=== PATIENT | female | born 1990 | race American Indian/Alaskan Native ===

== ENCOUNTER 2020-03-14 14:42 | Emergency (ER) | payer BC ==
[2020-03-14] MEDS ORDERED: Ondansetron 4 MG/2 ML SDV IVPUSH ONE (14:53)
[2020-03-14 14:56] VITALS: BP 108/76; PULSE 76
--- NOTE | 2020-03-14 15:07 | EDM.PDOC ---
ED HPI GENERAL MEDICAL PROBLEM - General Chief Complaint: Gastrointestinal Problem Stated Complaint: POSITIVE FOR COVID, 7 WEEKS Time Seen by Provider: 03/14/20 15:25 Source of Information: Reports: Patient, RN, RN Notes Reviewed History Limitations: Reports: No Limitations - History of Present Illness INITIAL COMMENTS - FREE TEXT/NARRATIVE: Patient presents to the ED via personal vehicle with complaints of intractable vomiting. She is 29 y/o 1 Para 0 at about 7 weeks gestation - per home test and personal cycle. She has not received obstetric care, yet, but has an appointment with the family practice provider at [facility]. She does attest to being COVID positive, as she was tested earlier this week. She states the nausea and vomiting began on Sunday of this past week 03/09/20. She reports multiple bouts of emesis every day, and has been unable to keep food and drink down. She denies diarrhea, bloody emesis, dysuria, hematuria, abdominal pain, fever, or shaking chills. She has not taken any medications for this problem. 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: Musculoskeletal History: Reports: None Neurological History: Reports: None Psychiatric History: Reports: None Endocrine/Metabolic History: Reports: None Hematologic History: Reports: None Immunologic History: Reports: None Oncologic (Cancer) History: Reports: None Dermatologic History: Reports: None - Infectious Disease History Infectious Disease History: Reports: None - Past Surgical History Head Surgeries/Procedures: Reports: None GI Surgical History: Reports: Cholecystectomy Social & Family History - Family History Family Medical History: Noncontributory - Tobacco Use Smoking Status *Q: Never Smoker Second Hand Smoke Exposure: No - Caffeine Use Caffeine Use: Reports: None - Recreational Drug Use Recreational Drug Use: No - Living Situation & Occupation Living situation: Reports: with Significant Other Occupation: Employed ED ROS GENERAL - Review of Systems Review Of Systems: Comprehensive ROS is negative, except as noted in HPI. ED EXAM, GI/ABD - Physical Exam Exam: See Below Exam Limited By: No Limitations General Appearance: Alert, WD/WN, No Apparent Distress Throat/Mouth: Normal Inspection, Normal Voice, No Airway Compromise Neck: Normal Inspection, Supple, Non-Tender Respiratory/Chest: No Respiratory Distress, Lungs Clear, Normal Breath Sounds, No Accessory Muscle Use, Chest Non-Tender Cardiovascular: Normal Peripheral Pulses, Regular Rate, Rhythm, No Edema, No Gallop, No Murmur, No Rub GI/Abdominal Exam: Normal Bowel Sounds, Soft, Non-Tender, No Distention, No Mass (Female) Exam: Deferred Rectal (Female) Exam: Deferred Extremities: Normal Capillary Refill Neurological: Alert, Oriented, CN II-XII Intact, Normal Cognition, No Motor/Sensory Deficits Skin Exam: Warm, Dry, Intact, Normal Color. No: Diaphoretic, Ecchymosis, Erythema, Petechiae, Rash Course - Vital Signs Last Recorded V/S: Last Vital Signs Temp 98.0 F 03/14/20 14:46 Pulse 76 03/14/20 14:46 Resp 16 03/14/20 14:46 BP 108/76 03/14/20 14:46 Pulse Ox 100 03/14/20 14:46 - Orders/Labs/Meds Orders: Active Orders 24 hr Category Date Time Status Sodium Chloride 0.9% [Normal Saline] 1,000 ml Med 03/14/20 16:04 Active IV .BOLUS Medication Orders Sodium Chloride (Normal Saline) 1,000 mls @ 999 mls/hr IV .BOLUS ONE Stop: 03/14/20 17:04 Last Admin: 03/14/20 16:05 Dose: 999 mls/hr Documented by: RHONDA Meds: Medications Generic Name Dose Route Start Last Admin Trade Name Freq PRN Reason Stop Dose Admin Sodium Chloride 1,000 mls @ 999 mls/hr 03/14/20 16:04 03/14/20 16:05 Normal Saline IV 03/14/20 17:04 999 mls/hr .BOLUS ONE Administration Discontinued Medications Generic Name Dose Route Start Last Admin Trade Name Freq PRN Reason Stop Dose Admin Ondansetron HCl 4 mg 03/14/20 14:53 03/14/20 15:02 Zofran IVPUSH 03/14/20 14:54 4 mg ONETIME ONE Administration - Re-Assessments/Exams Free Text/Narrative Re-Assessment/Exam: 03/14/20 15:30 Patient receiving IVF bolus. Zofran 4mg working for nausea. 03/14/20 16:29 Patient stable. VSS. Will discharge home. Departure - Departure Time of Disposition: 16:49 Disposition: Home, Self-Care 01 Clinical Impression: Vomiting during , Gastroenteritis due to COVID-19 virus - Discharge Information *PRESCRIPTION DRUG MONITORING PROGRAM REVIEWED*: Not Applicable *COPY OF PRESCRIPTION DRUG MONITORING REPORT IN PATIENT NORMAN: Not Applicable Instructions: and COVID-19, Morning Sickness, [id number] Forms: ED Department Discharge Additional Instructions: Drink plenty of fluids and eat smaller/snack-like meals. Follow-up with primary care provider, as previously scheduled. Sepsis Event Note (ED) - Evaluation Sepsis Screening Result: No Definite Risk - Focused Exam Vital Signs: Vital Signs Temp Pulse Resp BP Pulse Ox 03/14/20 14:46 98.0 F 76 16 108/76 100 - My Orders Last 24 Hours: My Active Orders 03/14/20 16:04 Sodium Chloride 0.9% [Normal Saline] 1,000 ml IV .BOLUS - Assessment/Plan Last 24 Hours: My Active Orders 03/14/20 16:04 Sodium Chloride 0.9% [Normal Saline] 1,000 ml IV .BOLUS
[2020-03-14] MEDS ORDERED: Sodium Chloride 0.9% 1,000 ML IV ONE (16:04)
== END 2020-03-14 17:00 | disposition home or self-care (01) ==
LOC: DL.ED 14:42
DX: O99.611 Diseases of the digestive system complicating pregnancy, first trimester (principal); K52.9 Noninfective gastroenteritis and colitis, unspecified; O98.511 Other viral diseases complicating pregnancy, first trimester; U07.1 COVID-19; Z3A.01 Less than 8 weeks gestation of pregnancy
CPT/HCPCS: 96361; 96374; 99283; J2405; J7030

== ENCOUNTER 2020-08-15 15:37 | Emergency (ER) | payer BC ==
[2020-08-15 15:49] VITALS: BP 112/65; PULSE 89
[2020-08-15] MEDS ORDERED: Ketorolac 30 MG/ML SDV IM ONE (16:23)
--- NOTE | 2020-08-15 17:04 | EDM.PDOC ---
Scribed by Prisca Merritt 08/15/20 2614 for Ade Judge NP ED HPI GENERAL MEDICAL PROBLEM - General Chief Complaint: Lower Extremity Injury/Pain Stated Complaint: SI NERVE PAIN Time Seen by Provider: 08/15/20 16:05 Source of Information: Reports: Patient, RN, RN Notes Reviewed History Limitations: Reports: No Limitations - History of Present Illness INITIAL COMMENTS - FREE TEXT/NARRATIVE: Patient is a 29-year-old female who presents to ER with complaint of right sciatic pain. Patient is a 29 weeks . States she went to the chiropractor on Sunday and things have been worsening. Admits to numbness and tingling down the right leg, and pain down right leg to the calf. Patient states she has been using Tylenol, ice, heat and states it feels good but does not improve pain. Onset: Gradual Duration: Getting Worse Location: Reports: Generalized Quality: Reports: Ache Severity: Moderate Improves with: Reports: None Worsens with: Reports: None Associated Symptoms: Reports: No Other Symptoms Right Leg Pain Score (Numeric/FACES): 10 - Related Data Allergies Allergy/AdvReac Type Severity Reaction Status Date / Time No Known Allergies Allergy Verified 08/15/20 15:48 Home Meds: Home Meds Ibuprofen 200 mg PO ASDIRECTED PRN 04/03/15 [History] Acetaminophen [Tylenol Extra Strength] 500 mg PO ASDIRECTED PRN 08/15/20 [History] Vit37/Iron/Folic Acid [Prenata] 1 tab PO DAILY 08/15/20 [History] Past Medical History - Past Health History Medical/Surgical History: Denies Medical/Surgical History HEENT History: Reports: None Cardiovascular History: Reports: None Respiratory History: Reports: None Gastrointestinal History: Reports: Cholelithiasis Genitourinary History: Reports: None 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: Musculoskeletal History: Reports: None Neurological History: Reports: None Psychiatric History: Reports: None Endocrine/Metabolic History: Reports: None Hematologic History: Reports: None Immunologic History: Reports: None Oncologic (Cancer) History: Reports: None Dermatologic History: Reports: None - Infectious Disease History Infectious Disease History: Reports: None - Past Surgical History Head Surgeries/Procedures: Reports: None GI Surgical History: Reports: Cholecystectomy Social & Family History - Family History Family Medical History: No Pertinent Family History - Tobacco Use Tobacco Use Status *Q: Never Tobacco User Second Hand Smoke Exposure: No - Caffeine Use Caffeine Use: Reports: None - Recreational Drug Use Recreational Drug Use: No - Living Situation & Occupation Living situation: Reports: with Significant Other Occupation: Employed Review of Systems - Review of Systems Review Of Systems: Comprehensive ROS is negative, except as noted in HPI. ED EXAM, GENERAL - Physical Exam Exam: See Below Exam Limited By: No Limitations General Appearance: Moderate Distress Eye Exam: Bilateral Eye: EOMI, Normal Inspection, PERRL Ears: Normal External Exam, Normal Canal, Hearing Grossly Normal, Normal TMs Nose: Normal Inspection, Normal Mucosa, No Blood Throat/Mouth: Normal Inspection, Normal Lips, Normal Teeth, Normal Gums, Normal Oropharynx, Normal Voice, No Airway Compromise Head: Atraumatic, Normocephalic Neck: Normal Inspection, Supple, Non-Tender, Full Range of Motion Respiratory/Chest: No Respiratory Distress, Lungs Clear, Normal Breath Sounds, No Accessory Muscle Use, Chest Non-Tender Cardiovascular: Normal Peripheral Pulses, Regular Rate, Rhythm, No Edema, No Gallop, No JVD, No Murmur, No Rub GI/Abdominal: Other (29 weeks ) (Female) Exam: Deferred Rectal (Female) Exam: Deferred Back Exam: Normal Inspection, Full Range of Motion, NT Extremities: Normal Inspection, Normal Range of Motion, Non-Tender, Normal Capillary Refill, No Pedal Edema Neurological: Alert, Oriented, CN II-XII Intact, Normal Cognition, Normal Gait, Normal Reflexes, No Motor/Sensory Deficits Psychiatric: Normal Affect, Normal Mood Skin Exam: Warm, Dry, Intact, Normal Color, No Rash Lymphatic: No Adenopathy Course - Vital Signs Last Recorded V/S: Last Vital Signs Temp 97.9 F 08/15/20 15:47 Pulse 89 08/15/20 15:47 Resp 18 08/15/20 15:47 BP 112/65 08/15/20 15:47 Pulse Ox 100 08/15/20 15:47 - Orders/Labs/Meds Meds: Medications Discontinued Medications Generic Name Dose Route Start Last Admin Trade Name Freq PRN Reason Stop Dose Admin Ketorolac Tromethamine 30 mg 08/15/20 16:23 08/15/20 16:33 Ketorolac 30 Mg/Ml Sdv IM 08/15/20 16:24 30 mg ONETIME ONE Administration Departure - Departure Time of Disposition: 16:42 Disposition: Home, Self-Care 01 Condition: Fair Clinical Impression: Right sided sciatica - Discharge Information *PRESCRIPTION DRUG MONITORING PROGRAM REVIEWED*: No *COPY OF PRESCRIPTION DRUG MONITORING REPORT IN PATIENT NORMAN: No Instructions: Sciatica, Cgnd-[id number] Forms: ED Department Discharge Additional Instructions: Continue using Tylenol, Lidocaine patch, ice and heat Rest Follow up with Physical Therapy tomorrow Sepsis Event Note (ED) - Evaluation Sepsis Screening Result: No Definite Risk - Focused Exam Vital Signs: Vital Signs Temp Pulse Resp BP Pulse Ox 08/15/20 15:47 97.9 F 89 18 112/65 100 I have read and agree with the documentation that has been completed regarding this visit. By signing this record, I attest that the documentation was completed in my physical presence and is an accurate record of the encounter.
== END 2020-08-15 16:46 | disposition home or self-care (01) ==
LOC: DL.ED 15:37
DX: O99.891 Other specified diseases and conditions complicating pregnancy (principal); M54.31 Sciatica, right side; Z3A.29 29 weeks gestation of pregnancy
CPT/HCPCS: 96372; 99283; J1885

== ENCOUNTER 2020-10-28 02:33 | Inpatient (IN) | payer BC, OTHER ==
[2020-10-28] MEDS: Lactated Ringers 1,000 ML IV SCH ×2 (03:10→04:20)
[2020-10-28] MEDS ORDERED: Lactated Ringers 1,000 ML IV ONE (03:11)
[2020-10-28] MEDS ORDERED: Carboprost Tromethamine 250 MCG/1 ML Amp IM PRN ×2 (03:11→08:51)
[2020-10-28] MEDS ORDERED: Methylergonovine 0.2 MG/1 ML Amp IM PRN (03:11)
[2020-10-28] MEDS ORDERED: Tranexamic Acid 1,000 MG in Sodium Chloride 0.9% 100 ML IV PRN ×2 (03:11→08:51)
[2020-10-28] MEDS ORDERED: Lidocaine 1% 30 ML SDV INJECT PRN (03:11)
[2020-10-28] MEDS ORDERED: Sodium Chloride 0.9% 10 ML Syringe FLUSH PRN ×2 (03:11→08:51)
[2020-10-28] MEDS ORDERED: Misoprostol 400 MCG (4 X 100 MCG TAB) RECTAL PRN ×2 (03:11→08:51)
[2020-10-28] MEDS ORDERED: Oxytocin/Normal Saline 30 UNIT/500 ML BAG IV SCH ×2 (03:15→05:15)
[2020-10-28] MEDS ORDERED: EPINEPHrine 1 MG/1 ML Amp ONE ×2 (03:50→03:55)
[2020-10-28] MEDS ORDERED: fentaNYL 100 MCG/2 ML SDV ITHECAL ONE (03:50)
[2020-10-28] MEDS ORDERED: Sodium Chloride 0.9% 20 ML SDV ONE (03:50)
[2020-10-28] MEDS ORDERED: fentaNYL 100 MCG/2 ML SDV ONE (03:55)
--- NOTE | 2020-10-28 03:55 | PCM.LDHP ---
L&D History of Present Illness - General Date of Service: 10/28/20 Admit Problem/Dx: Patient Status Order with Admit Dx/Problem 10/28/20 03:11 Patient Status [ADT] Routine Admission Diagnosis/Problem Admission Diagnosis/Problem Labor without complication Source of Information: Patient, RN History Limitations: Reports: No Limitations - Related Data Allergies/Adverse Reactions: Allergies Allergy/AdvReac Type Severity Reaction Status Date / Time No Known Allergies Allergy Verified 10/26/20 17:33 Home Medications: Home Meds Acetaminophen [Tylenol Extra Strength] 500 mg PO ASDIRECTED PRN 08/15/20 [History] Vit37/Iron/Folic Acid [Prenata] 1 tab PO DAILY 08/15/20 [History] Famotidine 20 mg PO DAILY 10/26/20 [History] Past Medical History - Past Health History Medical/Surgical History: Denies Medical/Surgical History HEENT History: Reports: None Cardiovascular History: Reports: None Respiratory History: Reports: None Gastrointestinal History: Reports: Cholelithiasis Genitourinary History: Reports: None 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: Musculoskeletal History: Reports: None Neurological History: Reports: None Psychiatric History: Reports: None Endocrine/Metabolic History: Reports: None Hematologic History: Reports: None Immunologic History: Reports: None Oncologic (Cancer) History: Reports: None Dermatologic History: Reports: None - Infectious Disease History Infectious Disease History: Reports: Other (See Below) Other Infectious Disease History: COVID 19 - Past Surgical History Head Surgeries/Procedures: Reports: None GI Surgical History: Reports: Cholecystectomy Social & Family History - Family History Family Medical History: No Pertinent Family History - Caffeine Use Caffeine Use: Reports: None - Living Situation & Occupation Living situation: Reports: with Significant Other Occupation: Employed - Patient Data Lab Results Last 24 hrs: Laboratory Results - last 24 hr 10/28/20 Range/Units 03:05 WBC 12.8 H (5.0-10.0) 10^3/uL RBC 4.37 (4.2-5.4) 10^6/uL Hgb 13.1 D (12.0-16.0) g/dL Hct 38.7 (37.0-47.0) % MCV 88.6 D (80-100) fL MCH 30.0 (27.0-34.0) pg MCHC 33.9 (33.0-35.0) g/dL Plt Count 214 D (150-450) 10^3/uL Result Diagrams: 10/28/20 03:05 Orders Last 24hrs: Active Orders 24 hr Category Date Time Status Patient Status [ADT] Routine ADT 10/28/20 03:11 Active Notify Provider Vital Signs OB [RC] ASDIRECTED Care 10/28/20 03:11 Active Notify Provider [RC] PRN Care 10/28/20 03:11 Active Pump Management, Intrathecal [RC] ASDIRECTED Care 10/28/20 03:11 Active Up ad Elvira [RC] ASDIRECTED Care 10/28/20 03:11 Active Vital Signs [RC] 08,20 Care 10/28/20 03:11 Active CORONAVIRUS COVID-19 VICKIE [MOLEC] Stat Lab 10/28/20 03:10 Received Acetaminophen [TylenoL] Med 10/28/20 03:11 Active 650 mg PO Q4H PRN Carboprost Tromethamine [Hemabate DS] Med 10/28/20 03:11 Active 250 mcg IM ASDIRECTED PRN Lactated Ringers [Ringers, Lactated] 1,000 ml Med 10/28/20 03:15 Active IV ASDIRECTED Lactated Ringers [Ringers, Lactated] 1,000 ml Med 10/28/20 03:11 Active IV BOLUS Lidocaine 1% [Xylocaine-MPF 1%] Med 10/28/20 03:11 Active 30 ml INJECT ASDIRECTED PRN Methylergonovine [Methergine] Med 10/28/20 03:11 Active 0.2 mg IM ASDIRECTED PRN Ondansetron [Zofran] Med 10/28/20 03:11 Active 4 mg IVPUSH Q4H PRN Oxytocin/Normal Saline [Pitocin in NS 30 UNIT/500 ML] Med 10/28/20 03:15 Active 30 unit in 500 ml IV TITRATE Sodium Chloride 0.9% [Saline Flush] Med 10/28/20 03:11 Active 10 ml FLUSH ASDIRECTED PRN Tranexamic Acid [Cyklokapron] 1,000 mg Med 10/28/20 03:11 Active Sodium Chloride 0.9% [Normal Saline] 100 ml IV ONETIME miSOPROStoL [Cytotec] Med 10/28/20 03:11 Active 800 mcg RECTAL ASDIRECTED PRN Saline Lock Insert [OM.PC] Routine Oth 10/28/20 03:11 Ordered Resuscitation Status Routine Resus Stat 10/28/20 03:11 Ordered Medication Orders Acetaminophen (Acetaminophen 325 Mg Tab) 650 mg PO Q4H PRN PRN Reason: Pain (Mild 1-3) and fever Carboprost Tromethamine (Carboprost Tromethamine 250 Mcg/1 Ml Amp) 250 mcg IM ASDIRECTED PRN PRN Reason: HEMORRHAGE Tranexamic Acid 1,000 mg/ (Sodium Chloride) 110 mls @ 660 mls/hr IV ONETIME PRN PRN Reason: Bleeding Oxytocin/Sodium Chloride (Pitocin In Ns 30 Unit/500 Ml) 30 unit in 500 mls @ 2 mls/hr IV TITRATE HANY; Protocol Lactated Ringer's (Ringers, Lactated) 1,000 mls @ 100 mls/hr IV BOLUS ONE Stop: 10/28/20 13:10 Lactated Ringer's (Ringers, Lactated) 1,000 mls @ 125 mls/hr IV ASDIRECTED HANY Lidocaine HCl (Lidocaine 1% 30 Ml Sdv) 30 ml INJECT ASDIRECTED PRN PRN Reason: Perineal Repair Methylergonovine Maleate (Methylergonovine 0.2 Mg/1 Ml Amp) 0.2 mg IM ASDIRECTED PRN PRN Reason: Hemorrhage Misoprostol (Misoprostol 400 Mcg (4 X 100 Mcg Tab)) 800 mcg RECTAL ASDIRECTED PRN PRN Reason: Hemorrhage Ondansetron HCl (Ondansetron 4 Mg/2 Ml Sdv) 4 mg IVPUSH Q4H PRN PRN Reason: Nausea/Vomiting Sodium Chloride (Sodium Chloride 0.9% 10 Ml Syringe) 10 ml FLUSH ASDIRECTED PRN PRN Reason: Keep Vein Open
[2020-10-28] MEDS ORDERED: Sodium Bicarbonate 4.2% 2.5 MEQ/5 ML SDV ONE (03:56)
[2020-10-28] MEDS: Ondansetron 4 MG/2 ML SDV IVPUSH PRN ×2 (03:58→08:32)
--- NOTE | 2020-10-28 04:31 | PCM.SN.2 ---
- Free Text/Narrative Note: Intrathecal. Sitting position, sterile prep and drape. 1% lidociane w bicarb for skinwheal to L2 L3 interspace. Introducer, 24 ga pencan x 2. Pos CSF, neg heme, neg parasthesia. 0.1 ml pf 1:1000 epi, 20 mcg pf sufenta, 30 mcg pf fentanyl, 0.4 ml pf NS and 6 mg of 0.75% pf marcaine injected after CSF aspiration. Pt to R lateral position. Procedure time 7460 to 1364
--- NOTE | 2020-10-28 05:00 | PCM.PNLD ---
<Tina Rodriguez - Last Filed: 10/28/20 05:08> Labor Progress Note - VS & Meds Active Medications: Current Medications Acetaminophen (Acetaminophen 325 Mg Tab) 650 mg PO Q4H PRN PRN Reason: Pain (Mild 1-3) and fever Carboprost Tromethamine (Carboprost Tromethamine 250 Mcg/1 Ml Amp) 250 mcg IM ASDIRECTED PRN PRN Reason: HEMORRHAGE Tranexamic Acid 1,000 mg/ (Sodium Chloride) 110 mls @ 660 mls/hr IV ONETIME PRN PRN Reason: Bleeding Oxytocin/Sodium Chloride (Pitocin In Ns 30 Unit/500 Ml) 30 unit in 500 mls @ 2 mls/hr IV TITRATE HANY; Protocol Lactated Ringer's (Ringers, Lactated) 1,000 mls @ 100 mls/hr IV BOLUS ONE Stop: 10/28/20 13:10 Lactated Ringer's (Ringers, Lactated) 1,000 mls @ 125 mls/hr IV ASDIRECTED HANY Last Admin: 10/28/20 04:20 Dose: 125 mls/hr Documented by: Lidocaine HCl (Lidocaine 1% 30 Ml Sdv) 30 ml INJECT ASDIRECTED PRN PRN Reason: Perineal Repair Methylergonovine Maleate (Methylergonovine 0.2 Mg/1 Ml Amp) 0.2 mg IM ASDIRECTED PRN PRN Reason: Hemorrhage Misoprostol (Misoprostol 400 Mcg (4 X 100 Mcg Tab)) 800 mcg RECTAL ASDIRECTED PRN PRN Reason: Hemorrhage Ondansetron HCl (Ondansetron 4 Mg/2 Ml Sdv) 4 mg IVPUSH Q4H PRN PRN Reason: Nausea/Vomiting Last Admin: 10/28/20 03:58 Dose: 4 mg Documented by: Sodium Chloride (Sodium Chloride 0.9% 10 Ml Syringe) 10 ml FLUSH ASDIRECTED PRN PRN Reason: Keep Vein Open Discontinued Medications Epinephrine HCl (Epinephrine 1 Mg/1 Ml Amp) Confirm Administered Dose 1 mg .ROUTE .STK-MED ONE Stop: 10/28/20 03:56 Last Admin: 10/28/20 04:54 Dose: Not Given Documented by: Fentanyl (Fentanyl 100 Mcg/2 Ml Sdv) Confirm Administered Dose 100 mcg .ROUTE .STK-MED ONE Stop: 10/28/20 03:56 Last Admin: 10/28/20 04:54 Dose: Not Given Documented by: Sodium Bicarbonate (Sodium Bicarbonate 4.2% 2.5 Meq/5 Ml Sdv) Confirm Administered Dose 2.5 meq .ROUTE .STK-MED ONE Stop: 10/28/20 03:57 Last Admin: 10/28/20 04:54 Dose: Not Given Documented by: Sufentanil Citrate (Sufentanil 50 Mcg/1 Ml Amp) Confirm Administered Dose 50 mcg .ROUTE .STK-MED ONE Stop: 10/28/20 03:56 Last Admin: 10/28/20 04:54 Dose: Not Given Documented by: - Uterine Contractions Contraction Frequency (min): Intermittently tracing, difficult to assess - Monitoring Heart Rate (FHR) Baseline: 140 Heart Rate (FHR) Variability: Moderate (6-25 bmp) Strip Review: Category I - Vaginal Exam Dilation (cm): 7 Effacement (Percent): 90% Station: -1 Cervical Position: Midposition - Labor Progress (Free Text) Labor Progress: Subjective: Beth Camacho is a 30 year old female at 39w6d. She is feeling comfortable after her intrathecal. She has no other concerns. Last BP 114/81 Procedure: Amniotomy Verbal consent was obtained from the patient. Risks and benefits of the procedure were reviewed with the patient, including potential risks of infection, bleeding, decelerations of the heart rate, and potential for cord prolapse. SVE was performed confirming a dilation of 7cm. There were intact membranes with adequate bulging amniotic sac for rupture. No cord was palpated. The procedure was done using an amnihook in the usual fashion. The membranes were split easily, releasing fluid of clear coloration. No cord was palpated after the procedure. Patient and baby tolerated the procedure well. Assessment: Beth Camacho is a 30 year old female at 39w6d here in labor. Plan: Continue current cares. Continue monitoring with EFM/[place] Will consider pitocin if contraction pattern remains spaced out Expect <Hanna Yee - Last Filed: 10/28/20 05:12> Labor Progress Note - Labor Progress (Free Text) Labor Progress: Procedure performed by Dr. Rodriguez, PGY3 under my direct supervision. Agree with note as written on my behalf by Dr. Rodriguez. -candle molder 10/28/20 0512
--- NOTE | 2020-10-28 08:04 | HP ---
DATE OF SERVICE: 10/28/2020 PRIMARY OB PROVIDER: Hanna Huertas MD. ADMITTING DIAGNOSES: 1. Intrauterine at 39 weeks 6 days gestation based on last menstrual period of 01/23/2020, confirmed with a 19 week 6 day ultrasound. 2. Group B Streptococcus negative, ABO blood group O positive, rubella immune. 3. G1, P0. HISTORY OF PRESENT ILLNESS: Patient is a 30-year-old G1, P0, at 39 weeks 6 days gestation with an estimated date of delivery of 10/29/2020 who presents to Labor and Delivery with contractions every 5 to 6 minutes, which have been increasing in intensity and frequency over time, as well a leakage of clear vaginal fluid at 0158 this morning. Denies any gush of fluid but did note it continued leaking somewhat slowly over time. Patient has been having contractions since 10/26 around 5 p.m. and was evaluated at Labor and Delivery that evening. Contractions were not producing cervical change, but the patient was started on Flagyl for bacterial vaginosis at that time. Contractions persisted throughout Sunday, slowly increasing in intensity and frequency. Patient began timing them at approximately midnight on 10/28. Originally approximately 10 minutes apart and then becoming closer together and more intense. Contractions are felt across the abdomen, pain shoots to the lower back. The patient states the contractions "take her breath away." The patient denies any headaches, changes in vision, chest pain, abdominal pain, acute increase in lower extremity edema. She is having some shortness of breath due to her gravid uterus and due to the intensity of the contractions. She has noted good movement. She denies any vaginal bleeding or change in vaginal discharge. She did start having some bloody show on 10/26. The patient is accompanied by significant other/FOB at bedside. OBSTETRICAL HISTORY: G1, P0. LABS: Blood group O positive, antibody screen negative, rubella immune, syphilis nonreactive, HIV negative, gonorrhea and chlamydia not detected. Wet prep negative. Urine drug screen negative. Hep C virus negative. Hep B virus negative. Quad screen negative. 1-hour glucose tolerance test passed. Group B Streptococcus negative. Varicella immune by titer. Started on treatment for BV yesterday. PAST MEDICAL HISTORY: Noncontributory. PAST SURGICAL HISTORY: Cholecystectomy, 06/28/2014. PRIOR TO ADMISSION MEDICATIONS: vitamin, course of Flagyl started 10/27/2020. ALLERGIES: No known drug allergies. 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 Father of baby is Rolando Aguillon. They are not but live together. He is working as a C and C flaring machine operator at [employer]. This is his 2nd baby. He has a son. No pets in the house. Patient denies any use of tobacco, alcohol, or drugs during this or in the past. FAMILY HISTORY: No known diseases in mother, father, siblings, paternal grandmother, paternal grandfather. Cancer in maternal grandfather. Diabetes in maternal grandmother. Multiple births in maternal grandmother- twins. No family history of anesthesia problems, bleeding problems, clotting disorder, defects, seizures, or cystic fibrosis. REVIEW OF SYSTEMS: General: Denies any increased malaise, fevers, chills. Cardiovascular: Denies any chest pain. Respiratory: Some shortness of breath related to gravid uterus. Gastrointestinal: Denies any abdominal pain, changes in bowel habits, constipation, diarrhea. Genitourinary: Denies any vaginal bleeding or change in vaginal discharge. Has noted leakage of clear fluid. Dermatologic: Denies any skin lesions or skin changes. Extremities: No change in lower extremity swelling. PHYSICAL EXAMINATION: Admission Vitals: Temperature 99 degrees Fahrenheit, blood pressure 138/84 mmHg, pulse 88 beats per minute. Height 5 feet 7 inches, weight 196 pounds. General Appearance: Patient appears alert and overall well, sitting up in bed. She is breathing through contractions. Lungs: Clear to auscultation bilaterally with no adventitial breath sounds. Symmetric air entry and chest expansion bilaterally. Heart: Regular rate and rhythm with no murmur. Abdomen: Gravid. FHT present. FHT category 1 with baseline of 140 beats per minute. Moderate variability and multiple accelerations. Tocometer revealing contractions every 3 to 4 minutes. Pelvic: Normal female external genitalia. Cervix dilated to 7 cm, 85% effaced, -1 station. Bag is not felt. Extremities: No redness or tenderness in the lower extremities. Scant peripheral edema. Skin: No lesions. Normal color and turgor. ASSESSMENT: 1. Intrauterine at 39 weeks 6 days gestation based on last menstrual period and confirmed by 19 weeks 6 days ultrasound. 2. Group B Streptococcus negative. Blood group O positive. Rubella immune. 3. G1, P0. 4. Bacterial vaginosis. PLAN: We will admit to Labor and Delivery and complete routine labor cares. Will contact Anesthesia for pain management as the patient is desiring an intrathecal. Anticipate normal spontaneous vaginal delivery. MODL /[id number] Patient seen and examined. Agree with note as written on my behalf by STEVEN Vang. -[facility] 10/30/2020 0805 MTDNuria
[2020-10-28] MEDS ORDERED: Benzocaine/Menthol 20%-0.5% Spray 56 GM Canister TOP PRN (08:51)
[2020-10-28] MEDS ORDERED: Simethicone 80 MG Tab.Chew PO PRN (08:51)
[2020-10-28] MEDS ORDERED: Zolpidem 5 MG Tab PO PRN (08:51)
[2020-10-28] MEDS ORDERED: Acetaminophen 325 MG Tab PO PRN (08:51)
[2020-10-28] MEDS ORDERED: Oxytocin 10 Units/1 ML SDV IM PRN (08:51)
--- NOTE | 2020-10-28 08:58 | PCM.DEL ---
<Tina Rodriguez - Last Filed: 10/28/20 09:10> L & D Note - General Info Date of Service: 10/28/20 - Delivery Note Labor: Spontaneous Delivery Outcome: Livebirth Delivery Mode: Spontaneous Presentation: Left Occiput Anterior (CHRISTY) Nuchal Cord: None Anesthesia Type: Intrathecal Amniotic Fluid Description: Clear Episiotomy Type: None Laceration: 2nd Degree Placenta: Intact, Spontaneous Cord: 3 Vessels Resuscitation Needed: No : Suctioned, Bulb Syringe, Stimulated, [place] Used Delivery Comments (Free Text/Narrative):: Beth Camacho is a 30 year old female G1 now P1 at 39w6d who presented with spontaneous onset of labor on 10/28/20. Category 1 tracing on admission. She was dilated to 7cm on admission. She felt that her water had broken at approximately 1:58 am, prior to presenting to Labor and Delivery. Forebag was noted on cervical recheck, and artificial rupture of membranes was done at 7cm with continued clear fluid. She requested and received intrathecal. She progressed to complete dilation without complication. Medical student was present and gowned with myself at the foot of the bed for delivery. Beth began pushing and delivered a liveborn male from the CHRISTY position over small second degree laceration. Vigorous infant with spontaneous cry after bulb suction. Placenta delivered spontaneously intact with a 3 vessel cord. IV Pitocin was started shortly after delivery of the placenta. There was brisk bleeding following delivery of the placenta. Uterine atony was noted which initially improved with fundal and bimanual massage. However, bleeding persisted. Pitocin was bolused at 999ml/hr. She received methergine, 800mcg of rectal cytotec, and TXA. Bladder was emptied by straight catheterization. Bleeding improved with these interventions but continued to be brisk despite firm uterus. Small second degree laceration was repaired in a figure of eight fashion. Vagina was explored to evaluate for other sources of bleeding. Posterior cervical laceration was noted and repaired. Hemostasis was confirmed. EBL approximately 1200cc. We'll recheck a CBC at 1300. Mother and infant doing well. - General Info Date of Service: 10/28/20 - Patient Data Vitals - Most Recent: Last Vital Signs Temp 98.7 F 10/28/20 06:15 Pulse 85 10/28/20 07:00 Resp 16 10/28/20 07:00 BP 122/89 10/28/20 07:00 Pulse Ox Weight - Most Recent: 89.811 kg I&O - Last 24 Hours: Intake & Output 10/27/20 10/28/20 10/28/20 22:59 06:59 14:59 Intake Total 1000 Balance 1000 Lab Results Last 24 Hours: Laboratory Results - last 24 hr 10/28/20 10/28/20 Range/Units 03:05 03:10 WBC 12.8 H (5.0-10.0) 10^3/uL RBC 4.37 (4.2-5.4) 10^6/uL Hgb 13.1 D (12.0-16.0) g/dL Hct 38.7 (37.0-47.0) % MCV 88.6 D (80-100) fL MCH 30.0 (27.0-34.0) pg MCHC 33.9 (33.0-35.0) g/dL Plt Count 214 D (150-450) 10^3/uL SARS-CoV-2 RNA (VICKIE) Negative (NEGATIVE) Med Orders - Current: Current Medications Acetaminophen (Acetaminophen 325 Mg Tab) 650 mg PO Q4H PRN PRN Reason: Pain (Mild 1-3) and fever Acetaminophen (Acetaminophen 325 Mg Tab) 650 mg PO Q6H PRN PRN Reason: Pain/Fever Benzocaine/Menthol (Benzocaine/Menthol 20%-0.5% [place] 56 Gm Canister) 0 gm TOP Q4H PRN PRN Reason: Perineal comfort measures Carboprost Tromethamine (Carboprost Tromethamine 250 Mcg/1 Ml Amp) 250 mcg IM ASDIRECTED PRN PRN Reason: HEMORRHAGE Carboprost Tromethamine (Carboprost Tromethamine 250 Mcg/1 Ml Amp) 250 mcg IM ASDIRECTED PRN PRN Reason: Excessive vaginal bleeding Docusate Sodium (Docusate Sodium 100 Mg Cap) 100 mg PO BID PRN PRN Reason: Constipation Tranexamic Acid 1,000 mg/ (Sodium Chloride) 110 mls @ 660 mls/hr IV ONETIME PRN PRN Reason: Bleeding Last Admin: 10/28/20 08:10 Dose: 660 mls/hr Documented by: Oxytocin/Sodium Chloride (Pitocin In Ns 30 Unit/500 Ml) 30 unit in 500 mls @ 2 mls/hr IV TITRATE HANY; Protocol Last Titration: 10/28/20 08:44 Dose: 125 munits/min, 125 mls/hr Documented by: Lactated Ringer's (Ringers, Lactated) 1,000 mls @ 100 mls/hr IV BOLUS ONE Stop: 10/28/20 13:10 Lactated Ringer's (Ringers, Lactated) 1,000 mls @ 125 mls/hr IV ASDIRECTED HANY Last Admin: 10/28/20 04:20 Dose: 125 mls/hr Documented by: Oxytocin/Sodium Chloride (Pitocin In Ns 30 Unit/500 Ml) 30 unit in 500 mls @ 2 mls/hr IV TITRATE HANY; Protocol Last Titration: 10/28/20 06:30 Dose: 6 munits/min, 6 mls/hr Documented by: Tranexamic Acid 1,000 mg/ (Sodium Chloride) 110 mls @ 660 mls/hr IV ONETIME PRN PRN Reason: Bleeding Ibuprofen (Ibuprofen 800 Mg Tab) 800 mg PO Q8H PRN PRN Reason: Pain Lidocaine HCl (Lidocaine 1% 30 Ml Sdv) 30 ml INJECT ASDIRECTED PRN PRN Reason: Perineal Repair Methylergonovine Maleate (Methylergonovine 0.2 Mg/1 Ml Amp) 0.2 mg IM ASDIRECTED PRN PRN Reason: Hemorrhage Last Admin: 10/28/20 07:58 Dose: 0.2 mg Documented by: Misoprostol (Misoprostol 400 Mcg (4 X 100 Mcg Tab)) 800 mcg RECTAL ASDIRECTED PRN PRN Reason: Hemorrhage Last Admin: 10/28/20 08:00 Dose: 800 mcg Documented by: Misoprostol (Misoprostol 400 Mcg (4 X 100 Mcg Tab)) 800 mcg RECTAL ONETIME PRN PRN Reason: Hemorrhage Ondansetron HCl (Ondansetron 4 Mg/2 Ml Sdv) 4 mg IVPUSH Q4H PRN PRN Reason: Nausea/Vomiting Last Admin: 10/28/20 08:32 Dose: 4 mg Documented by: Oxytocin (Oxytocin 10 Units/1 Ml Sdv) 10 unit IM ONETIME PRN PRN Reason: Bleeding Prenat Multivit/Belt Line Feeder/Iron/Folic Ac ( Multivitamin With Calcium/Folic Acid/Iron Tab) 1 each PO DAILY HANY Simethicone (Simethicone 80 Mg Tab.Chew) 80 mg PO Q4H PRN PRN Reason: Gas Sodium Chloride (Sodium Chloride 0.9% 10 Ml Syringe) 10 ml FLUSH ASDIRECTED PRN PRN Reason: Keep Vein Open Sodium Chloride (Sodium Chloride 0.9% 10 Ml Syringe) 10 ml FLUSH ASDIRECTED PRN PRN Reason: Keep Vein Open Zolpidem Tartrate (Zolpidem 5 Mg Tab) 5 mg PO BEDTIME PRN PRN Reason: Insomnia Discontinued Medications Epinephrine HCl (Epinephrine 1 Mg/1 Ml Amp) Confirm Administered Dose 1 mg .ROUTE .STK-MED ONE Stop: 10/28/20 03:56 Last Admin: 10/28/20 04:54 Dose: Not Given Documented by: Fentanyl (Fentanyl 100 Mcg/2 Ml Sdv) Confirm Administered Dose 100 mcg .ROUTE .STK-MED ONE Stop: 10/28/20 03:56 Last Admin: 10/28/20 04:54 Dose: Not Given Documented by: Sodium Bicarbonate (Sodium Bicarbonate 4.2% 2.5 Meq/5 Ml Sdv) Confirm Administered Dose 2.5 meq .ROUTE .STK-MED ONE Stop: 10/28/20 03:57 Last Admin: 10/28/20 04:54 Dose: Not Given Documented by: Sufentanil Citrate (Sufentanil 50 Mcg/1 Ml Amp) Confirm Administered Dose 50 mcg .ROUTE .STK-MED ONE Stop: 10/28/20 03:56 Last Admin: 10/28/20 04:54 Dose: Not Given Documented by: - Problem List Review Problem List Initiated/Reviewed/Updated: Yes - My Orders Last 24 Hours: My Active Orders 10/28/20 03:11 Patient Status [ADT] Routine Notify Provider Vital Signs OB [RC] ASDIRECTED Notify Provider [RC] PRN Pump Management, Intrathecal [RC] ASDIRECTED Up ad Elvira [RC] ASDIRECTED Vital Signs [RC] 08,20 Acetaminophen [TylenoL] 650 mg PO Q4H PRN Carboprost Tromethamine [Hemabate DS] 250 mcg IM ASDIRECTED PRN Lactated Ringers [Ringers, Lactated] 1,000 ml IV BOLUS Lidocaine 1% [Xylocaine-MPF 1%] 30 ml INJECT ASDIRECTED PRN Methylergonovine [Methergine] 0.2 mg IM ASDIRECTED PRN Ondansetron [Zofran] 4 mg IVPUSH Q4H PRN Sodium Chloride 0.9% [Saline Flush] 10 ml FLUSH ASDIRECTED PRN Tranexamic Acid [Cyklokapron] 1,000 mg Sodium Chloride 0.9% [Normal Saline] 100 ml IV ONETIME miSOPROStoL [Cytotec] 800 mcg RECTAL ASDIRECTED PRN Saline Lock Insert [OM.PC] Routine Resuscitation Status Routine 10/28/20 03:15 Lactated Ringers [Ringers, Lactated] 1,000 ml IV ASDIRECTED Oxytocin/Normal Saline [Pitocin in NS 30 UNIT/500 ML] 30 unit in 500 ml IV TITRATE 10/28/20 05:15 Oxytocin/Normal Saline [Pitocin in NS 30 UNIT/500 ML] 30 unit in 500 ml IV TITRATE 10/28/20 Breakfast Regular Diet [DIET] 10/28/20 08:51 Notify Provider Vital Signs OB [RC] ASDIRECTED Up ad Elvira [RC] ASDIRECTED Vital Signs [RC] PFP Acetaminophen [TylenoL] 650 mg PO Q6H PRN Benzocaine/Menthol [Dermoplast Pain Relief [place]] See Dose Instructions TOP Q4H PRN Carboprost Tromethamine [Hemabate DS] 250 mcg IM ASDIRECTED PRN Docusate Sodium [Colace] 100 mg PO BID PRN Ibuprofen [Motrin] 800 mg PO Q8H PRN Oxytocin [Pitocin] 10 unit IM ONETIME PRN Simethicone 80 mg PO Q4H PRN Sodium Chloride 0.9% [Saline Flush] 10 ml FLUSH ASDIRECTED PRN Tranexamic Acid [Cyklokapron] 1,000 mg Sodium Chloride 0.9% [Normal Saline] 100 ml IV ONETIME Zolpidem [Ambien] 5 mg PO BEDTIME PRN miSOPROStoL [Cytotec] 800 mcg RECTAL ONETIME PRN Assess Lochia [WOMSER] Per Unit Routine Assess Uterine Involution [WOMSER] Per Unit Routine Breast Pump [WOMSER] Per Unit Routine Ice Therapy [OM.PC] Per Unit Routine Perineal Care [OM.PC] Per Unit Routine Saline Lock Insert [OM.PC] Urgent Sitz Bath [OM.PC] Per Unit Routine 10/28/20 09:00 Vit with Ca/FA/Iron [ Plus Iron] 1 each PO DAILY 10/28/20 Lunch Regular Diet [DIET] 10/28/20 13:00 CBC W/O DIFF,HEMOGRAM [HEME] Routine 10/28/20 Dinner Regular Diet [DIET] <Hanna Yee - Last Filed: 10/30/20 08:00> - Patient Data Vitals - Most Recent: Last Vital Signs Temp 97.2 F 10/29/20 20:00 Pulse 81 10/29/20 20:00 Resp 16 10/29/20 20:00 BP 122/78 10/29/20 20:00 Pulse Ox 100 10/29/20 20:00 Med Orders - Current: Current Medications Acetaminophen (Acetaminophen 325 Mg Tab) 650 mg PO Q4H PRN PRN Reason: Pain (Mild 1-3) and fever Last Admin: 10/29/20 09:33 Dose: 650 mg Documented by: Benzocaine/Menthol (Benzocaine/Menthol 20%-0.5% [place] 56 Gm Canister) 0 gm TOP Q4H PRN PRN Reason: Perineal comfort measures Last Admin: 10/28/20 13:06 Dose: 1 spray Documented by: Carboprost Tromethamine (Carboprost Tromethamine 250 Mcg/1 Ml Amp) 250 mcg IM ASDIRECTED PRN PRN Reason: HEMORRHAGE Docusate Sodium (Docusate Sodium 100 Mg Cap) 100 mg PO BID PRN PRN Reason: Constipation Last Admin: 10/29/20 20:28 Dose: 100 mg Documented by: Ferrous Sulfate (Ferrous Sulfate 325 Mg Tab) 325 mg PO BIDMEALS [facility] Last Admin: 10/29/20 20:29 Dose: 325 mg Documented by: Oxytocin/Sodium Chloride (Pitocin In Ns 30 Unit/500 Ml) 30 unit in 500 mls @ 2 mls/hr IV TITRATE HANY; Protocol Last Titration: 10/28/20 09:57 Dose: Infused Documented by: Lactated Ringer's (Ringers, Lactated) 1,000 mls @ 125 mls/hr IV ASDIRECTED HANY Last Admin: 10/28/20 04:20 Dose: 125 mls/hr Documented by: Oxytocin/Sodium Chloride (Pitocin In Ns 30 Unit/500 Ml) 30 unit in 500 mls @ 2 mls/hr IV TITRATE HANY; Protocol Last Titration: 10/28/20 06:30 Dose: 6 munits/min, 6 mls/hr Documented by: Tranexamic Acid 1,000 mg/ (Sodium Chloride) 110 mls @ 660 mls/hr IV ONETIME PRN PRN Reason: Bleeding Ibuprofen (Ibuprofen 800 Mg Tab) 800 mg PO Q8H PRN PRN Reason: Pain (moderate 4-6) Last Admin: 10/30/20 04:02 Dose: 800 mg Documented by: Lidocaine HCl (Lidocaine 1% 30 Ml Sdv) 30 ml INJECT ASDIRECTED PRN PRN Reason: Perineal Repair Methylergonovine Maleate (Methylergonovine 0.2 Mg/1 Ml Amp) 0.2 mg IM ASDIRECTED PRN PRN Reason: Hemorrhage Last Admin: 10/28/20 07:58 Dose: 0.2 mg Documented by: Metronidazole (Metronidazole 250 Mg Tab) 500 mg PO Q12HR HANY Stop: 11/04/20 09:01 Last Admin: 10/29/20 20:28 Dose: 500 mg Documented by: Misoprostol (Misoprostol 400 Mcg (4 X 100 Mcg Tab)) 800 mcg RECTAL ASDIRECTED PRN PRN Reason: Hemorrhage Last Admin: 10/28/20 08:00 Dose: 800 mcg Documented by: Ondansetron HCl (Ondansetron 4 Mg/2 Ml Sdv) 4 mg IVPUSH Q4H PRN PRN Reason: Nausea/Vomiting Last Admin: 10/28/20 08:32 Dose: 4 mg Documented by: Oxytocin (Oxytocin 10 Units/1 Ml Sdv) 10 unit IM ONETIME PRN PRN Reason: Bleeding Prenat Multivit/[place]/Iron/Folic Ac ( Multivitamin With Calcium/Folic Acid/Iron Tab) 1 each PO DAILY HANY Last Admin: 10/29/20 09:32 Dose: 1 each Documented by: Simethicone (Simethicone 80 Mg Tab.Chew) 80 mg PO Q4H PRN PRN Reason: Gas Last Admin: 10/28/20 19:59 Dose: 80 mg Documented by: Sodium Chloride (Sodium Chloride 0.9% 10 Ml Syringe) 10 ml FLUSH ASDIRECTED PRN PRN Reason: Keep Vein Open Discontinued Medications Epinephrine HCl (Epinephrine 1 Mg/1 Ml Amp) Confirm Administered Dose 1 mg .ROUTE .STK-MED ONE Stop: 10/28/20 03:56 Last Admin: 10/28/20 04:54 Dose: Not Given Documented by: Epinephrine HCl (Epinephrine 1 Mg/1 Ml Amp) 0.1 mg .XX .STK-MED ONE Stop: 10/28/20 03:51 Fentanyl (Fentanyl 100 Mcg/2 Ml Sdv) Confirm Administered Dose 100 mcg .ROUTE .STK-MED ONE Stop: 10/28/20 03:56 Last Admin: 10/28/20 04:54 Dose: Not Given Documented by: Fentanyl (Fentanyl 100 Mcg/2 Ml Sdv) 30 mcg ITHECAL .STK-MED ONE Stop: 10/28/20 03:51 Tranexamic Acid 1,000 mg/ (Sodium Chloride) 110 mls @ 660 mls/hr IV ONETIME PRN PRN Reason: Bleeding Last Admin: 10/28/20 08:10 Dose: 660 mls/hr Documented by: Lactated Ringer's (Ringers, Lactated) 1,000 mls @ 100 mls/hr IV BOLUS ONE Stop: 10/28/20 13:10 Last Admin: 10/28/20 13:49 Dose: Not Given Documented by: Sodium Bicarbonate (Sodium Bicarbonate 4.2% 2.5 Meq/5 Ml Sdv) Confirm Administered Dose 2.5 meq .ROUTE .STK-MED ONE Stop: 10/28/20 03:57 Last Admin: 10/28/20 04:54 Dose: Not Given Documented by: Sodium Bicarbonate (Sodium Bicarbonate 4.2% 5 Meq/10 Ml Syringe) 0.5 meq .XX .STK-MED ONE Stop: 10/28/20 03:51 Sodium Chloride (Sodium Chloride 0.9% 20 Ml Sdv) 0.4 ml .XX .STK-MED ONE Stop: 10/28/20 03:51 Sufentanil Citrate (Sufentanil 50 Mcg/1 Ml Amp) Confirm Administered Dose 50 mcg .ROUTE .STK-MED ONE Stop: 10/28/20 03:56 Last Admin: 10/28/20 04:54 Dose: Not Given Documented by: Sufentanil Citrate (Sufentanil 50 Mcg/1 Ml Amp) 20 mcg ITHECAL .STK-MED ONE Stop: 10/28/20 03:51 Zolpidem Tartrate (Zolpidem 5 Mg Tab) 5 mg PO BEDTIME PRN PRN Reason: Insomnia - My Orders Last 24 Hours: My Active Orders 10/29/20 15:03 Consult to Burn Nurse [CONS] Routine - Plan Plan:: Delivery performed under my direct supervision and hemorrhage from uterine atony managed well by Corine Gerber, MS3 and Dr. Rodriguez, PGY3. The 8:00 cervical laceration I repaired personally with 3-o vicryl and running stitch. Hemostasis was achieved. Agree with note as otherwise written on my behalf. -staff trainer 10/30/2020 0800.
[2020-10-28] MEDS: Docusate Sodium 100 MG Cap PO PRN ×2 (13:03→19:59)
[2020-10-28] MEDS: Ibuprofen 800 MG Tab PO PRN ×2 (13:03→20:00)
[2020-10-28] MEDS: Prenatal Multivitamin with Calcium/Folic Acid/Iron Tab PO SCH (19:40)
[2020-10-28] MEDS: Ferrous Sulfate 325 MG Tab PO SCH (20:00)
[2020-10-29] MEDS: Docusate Sodium 100 MG Cap PO PRN ×2 (09:30→20:28)
[2020-10-29] MEDS: metroNIDAZOLE 250 MG Tab PO SCH ×2 (09:30→20:28)
[2020-10-29] MEDS: Prenatal Multivitamin with Calcium/Folic Acid/Iron Tab PO SCH (09:32)
[2020-10-29] MEDS: Ibuprofen 800 MG Tab PO PRN ×2 (09:32→20:27)
[2020-10-29] MEDS: Ferrous Sulfate 325 MG Tab PO SCH ×2 (09:33→20:29)
[2020-10-29] MEDS: Acetaminophen 325 MG Tab PO PRN (09:33)
--- NOTE | 2020-10-29 10:17 | PN ---
DATE: 10/29/2020 PRIMARY OBSTETRICAL PROVIDER: Hanna Huertas MD ADMITTING DIAGNOSES: 1. Intrauterine at 39 weeks 6 days based on last menstrual period and confirmed by 19 weeks 6 days ultrasound. 2. Group B Streptococcus negative, ABO blood group O positive, rubella immune. 3. G1, P0. SUBJECTIVE: Patient has no complaints this morning. She is day #1 s/p normal spontaneous vaginal delivery, complicated by hemorrhage due to uterine atony and posterior cervical laceration. She did have a first-degree perineal laceration as well. EBL 1200 mL. This morning, she denies any lightheadedness or difficulty ambulating. She does not have shortness of breath, fevers, or chills. She is voiding and ambulating to the commode without difficulty. Tolerating oral intake. Lochia is appropriate and pain is currently well controlled. She has initiated with her , which seems to be going exceptionally well. OBJECTIVE: Current Vital Signs: Temperature 98.6 degrees Fahrenheit, pulse 99 beats per minute, blood pressure 105/66 mmHg, respiratory rate 16 breaths per minute, O2 saturation by pulse oximetry 98%. General: The patient appears alert, in no acute distress with an appropriate affect, sitting up in bed and holding her infant. Cardiovascular: Regular rate and rhythm without murmur. Lungs: Clear to auscultation bilaterally with no adventitial breath sounds. Symmetric air entry and chest expansion. Abdomen: Soft, mildly tender to palpation, fundus firm 2 fingerbreadths below the umbilicus. Extremities: Nontender. No peripheral edema. SKIN: No lesions or rashes. Mild pallor. LABORATORY DATA: White blood cell count 9.0, hemoglobin 7.5, hematocrit 23.3, platelet count 186. LABS ON ADMISSION: White blood cell count 12.8, hemoglobin 13.1, platelet count 214. ASSESSMENT: 1. Intrauterine at 39 weeks 6 days gestation by last menstrual period and confirmed with 19 weeks 6 days ultrasound, status post normal spontaneous vaginal delivery. 2. Group B Streptococcus negative, ABO blood group O positive, Rubella immune. 3. G1, now P1-0-0-1. 4. hemorrhage secondary to uterine atony and posterior cervical laceration requiring bimanual massage and uterine evacuation of clots as well as Pitocin, Methergine, rectal Cytotec, and TXA administration. 5. First-degree perineal laceration, repaired in the usual fashion. PLAN: We will continue normal cares. The patient appears to be relatively asymptomatic from hemorrhage with minimal complaints and normal vital signs. She appears to be meeting milestones. We will initiate vitamin and iron supplementation as well as restart her home metronidazole for treatment of bacterial vaginosis, diagnosed on 10/27. We will encourage breast-feeding and time with infant. The patient appears to be doing well in this regard. Will advance activity as tolerated. Anticipate discharge home on day #2. FOLLOWUP PHYSICIAN: Hanna Huertas MD [facility] /[id number] MTDD
[2020-10-30] MEDS: Ibuprofen 800 MG Tab PO PRN (04:02)
[2020-10-30] MEDS: metroNIDAZOLE 250 MG Tab PO SCH (08:54)
[2020-10-30] MEDS: Prenatal Multivitamin with Calcium/Folic Acid/Iron Tab PO SCH (08:54)
[2020-10-30] MEDS: Docusate Sodium 100 MG Cap PO PRN (08:54)
[2020-10-30] MEDS: Ferrous Sulfate 325 MG Tab PO SCH (08:54)
[2020-10-30] MEDS: Acetaminophen 325 MG Tab PO PRN (08:57)
[2020-10-30 09:27] VITALS: BP 112/76; PULSE 85
--- NOTE | 2020-10-30 09:34 | PCM.DCSUM1 ---
Discharge Summary - Hospital Course Brief History: Patient was admitted in spontaneous labor. Had SROM at home around 2 AM. She was dilated to 7 uppon arrival. She recieved an intrathecal and progressed to complete. She delivered healthy male . Has brisk bleeding after delivery, pitocin was turned up and she was given methergine, rectal cytotec, and TXA. Small 2nd degree lac was repaired but bleeding persisted. Cervical lac then noted and repaired and bleeding was controlled. EBL was 1200 ml and hgb went from 13.1 to 7.5. She remained asymptomatic so no transfusion given. She was started on iron BID along with a stool softener. Her post course was uneventful and she was discharged on post day 2. - Discharge Data Discharge Date: 10/30/20 Discharge Disposition: Home, Self-Care 01 Condition: Good - Referral to Home Health Primary Care Physician: Hanna Huertas MD - Patient Summary/Data Consults: Consultations 10/29/20 15:03 Consult to Artificial Teeth Inspector [CONS] Routine - Discharge Plan *PRESCRIPTION DRUG MONITORING PROGRAM REVIEWED*: Not Applicable *COPY OF PRESCRIPTION DRUG MONITORING REPORT IN PATIENT [place]: Not Applicable Home Medications: Home Meds Vit37/Iron/Folic Acid [Prenata] 1 tab PO DAILY 08/15/20 [History] Famotidine 20 mg PO DAILY 10/26/20 [History] Acetaminophen [Tylenol] 650 mg PO Q4H PRN tablet 10/30/20 [Rx] Docusate Sodium [Colace] 100 mg PO BID PRN cap 10/30/20 [Rx] Ferrous Sulfate 325 mg PO BIDMEALS tablet 10/30/20 [Rx] Ibuprofen [Motrin] 800 mg PO Q8H PRN tablet 10/30/20 [Rx] Vit with Ca/FA/Iron [ Plus Iron] 1 each PO DAILY tablet 10/30/20 [Rx] metroNIDAZOLE 500 mg PO Q12HR tablet 10/30/20 [Rx] Patient Handouts: Care After Vaginal Delivery Referrals: Hanna Yee MD [Primary Care Provider] - - Discharge Summary/Plan Comment DC Time >30 min.: No Discharge Summary/Plan Comment: Patient will be discharged to home. Continue flagyl for BV. Continue iron BID along with daily colace. Prescriptions provided. Post cares discussed in detail. Red flag symptoms were reviewed. Recommend pelvic rest for 6 weeks. Follow up at 6 week post visit. Katlyn Solis MD - General Info Date of Service: 10/30/20 Subjective Update: Patient is post day 2 s/p spontaneous vaginal delivery. She is doing well. Lochia is mild to moderate. Pain is controlled with OTC medications. She denies dizziness, lightheadedness, nausea, vomiting. She had a post hemorrhage with EBL of 1200 ml. Her hemoglobin did go from 13.1 to 7.5. She has been started on iron supplements. She is and feels that it is going well today. She has started to use a nipple shield and is also pumping after feeds. She has not had a bowel movement but has passed gas. She is urinating without difficulty. She is tolerating oral intake. She would like to go home today. Functional Status: Reports: Pain Controlled - Review of Systems General: Denies: Fever, Fatigue HEENT: Denies: Headaches, Visual Changes Pulmonary: Denies: Shortness of Breath Cardiovascular: Denies: Chest Pain, Edema, Lightheadedness Gastrointestinal: Reports: Vomiting. Denies: Nausea Neurological: Reports: Weakness. Denies: Dizziness, Headache - Patient Data Vitals - Most Recent: Last Vital Signs Temp 97.8 F 10/30/20 08:00 Pulse 85 10/30/20 08:00 Resp 16 10/30/20 08:00 BP 112/76 10/30/20 08:00 Pulse Ox 100 10/30/20 08:00 Weight - Most Recent: 89.811 kg Med Orders - Current: Current Medications Acetaminophen (Acetaminophen 325 Mg Tab) 650 mg PO Q4H PRN PRN Reason: Pain (Mild 1-3) and fever Last Admin: 10/30/20 08:57 Dose: 650 mg Documented by: Benzocaine/Menthol (Benzocaine/Menthol 20%-0.5% Mena 56 Gm Canister) 0 gm TOP Q4H PRN PRN Reason: Perineal comfort measures Last Admin: 10/28/20 13:06 Dose: 1 spray Documented by: Carboprost Tromethamine (Carboprost Tromethamine 250 Mcg/1 Ml Amp) 250 mcg IM ASDIRECTED PRN PRN Reason: HEMORRHAGE Docusate Sodium (Docusate Sodium 100 Mg Cap) 100 mg PO BID PRN PRN Reason: Constipation Last Admin: 10/30/20 08:54 Dose: 100 mg Documented by: Ferrous Sulfate (Ferrous Sulfate 325 Mg Tab) 325 mg PO BIDMEALS [facility] Last Admin: 10/30/20 08:54 Dose: 325 mg Documented by: Oxytocin/Sodium Chloride (Pitocin In Ns 30 Unit/500 Ml) 30 unit in 500 mls @ 2 mls/hr IV TITRATE [facility]; Protocol Last Titration: 10/28/20 09:57 Dose: Infused Documented by: Lactated Ringer's (Ringers, Lactated) 1,000 mls @ 125 mls/hr IV ASDIRECTED [facility] Last Admin: 10/28/20 04:20 Dose: 125 mls/hr Documented by: Oxytocin/Sodium Chloride (Pitocin In Ns 30 Unit/500 Ml) 30 unit in 500 mls @ 2 mls/hr IV TITRATE [facility]; Protocol Last Titration: 10/28/20 06:30 Dose: 6 munits/min, 6 mls/hr Documented by: Tranexamic Acid 1,000 mg/ (Sodium Chloride) 110 mls @ 660 mls/hr IV ONETIME PRN PRN Reason: Bleeding Ibuprofen (Ibuprofen 800 Mg Tab) 800 mg PO Q8H PRN PRN Reason: Pain (moderate 4-6) Last Admin: 10/30/20 04:02 Dose: 800 mg Documented by: Lidocaine HCl (Lidocaine 1% 30 Ml Sdv) 30 ml INJECT ASDIRECTED PRN PRN Reason: Perineal Repair Methylergonovine Maleate (Methylergonovine 0.2 Mg/1 Ml Amp) 0.2 mg IM ASDIRECTED PRN PRN Reason: Hemorrhage Last Admin: 10/28/20 07:58 Dose: 0.2 mg Documented by: Metronidazole (Metronidazole 250 Mg Tab) 500 mg PO Q12HR [facility] Stop: 11/04/20 09:01 Last Admin: 10/30/20 08:54 Dose: 500 mg Documented by: Misoprostol (Misoprostol 400 Mcg (4 X 100 Mcg Tab)) 800 mcg RECTAL ASDIRECTED PRN PRN Reason: Hemorrhage Last Admin: 10/28/20 08:00 Dose: 800 mcg Documented by: Ondansetron HCl (Ondansetron 4 Mg/2 Ml Sdv) 4 mg IVPUSH Q4H PRN PRN Reason: Nausea/Vomiting Last Admin: 10/28/20 08:32 Dose: 4 mg Documented by: Oxytocin (Oxytocin 10 Units/1 Ml Sdv) 10 unit IM ONETIME PRN PRN Reason: Bleeding Prenat Multivit/Customer Operations Representative/Iron/Folic Ac ( Multivitamin With Calcium/Folic Acid/Iron Tab) 1 each PO DAILY [facility] Last Admin: 10/30/20 08:54 Dose: 1 each Documented by: Simethicone (Simethicone 80 Mg Tab.Chew) 80 mg PO Q4H PRN PRN Reason: Gas Last Admin: 10/28/20 19:59 Dose: 80 mg Documented by: Sodium Chloride (Sodium Chloride 0.9% 10 Ml Syringe) 10 ml FLUSH ASDIRECTED PRN PRN Reason: Keep Vein Open Discontinued Medications Epinephrine HCl (Epinephrine 1 Mg/1 Ml Amp) Confirm Administered Dose 1 mg .ROUTE .STK-MED ONE Stop: 10/28/20 03:56 Last Admin: 10/28/20 04:54 Dose: Not Given Documented by: Epinephrine HCl (Epinephrine 1 Mg/1 Ml Amp) 0.1 mg .XX .STK-MED ONE Stop: 10/28/20 03:51 Fentanyl (Fentanyl 100 Mcg/2 Ml Sdv) Confirm Administered Dose 100 mcg .ROUTE .STK-MED ONE Stop: 10/28/20 03:56 Last Admin: 10/28/20 04:54 Dose: Not Given Documented by: Fentanyl (Fentanyl 100 Mcg/2 Ml Sdv) 30 mcg ITHECAL .STK-MED ONE Stop: 10/28/20 03:51 Tranexamic Acid 1,000 mg/ (Sodium Chloride) 110 mls @ 660 mls/hr IV ONETIME PRN PRN Reason: Bleeding Last Admin: 10/28/20 08:10 Dose: 660 mls/hr Documented by: Lactated Ringer's (Ringers, Lactated) 1,000 mls @ 100 mls/hr IV BOLUS ONE Stop: 10/28/20 13:10 Last Admin: 10/28/20 13:49 Dose: Not Given Documented by: Sodium Bicarbonate (Sodium Bicarbonate 4.2% 2.5 Meq/5 Ml Sdv) Confirm Administered Dose 2.5 meq .ROUTE .STK-MED ONE Stop: 10/28/20 03:57 Last Admin: 10/28/20 04:54 Dose: Not Given Documented by: Sodium Bicarbonate (Sodium Bicarbonate 4.2% 5 Meq/10 Ml Syringe) 0.5 meq .XX .STK-MED ONE Stop: 10/28/20 03:51 Sodium Chloride (Sodium Chloride 0.9% 20 Ml Sdv) 0.4 ml .XX .STK-MED ONE Stop: 10/28/20 03:51 Sufentanil Citrate (Sufentanil 50 Mcg/1 Ml Amp) Confirm Administered Dose 50 mcg .ROUTE .STK-MED ONE Stop: 10/28/20 03:56 Last Admin: 10/28/20 04:54 Dose: Not Given Documented by: Sufentanil Citrate (Sufentanil 50 Mcg/1 Ml Amp) 20 mcg ITHECAL .STK-MED ONE Stop: 10/28/20 03:51 Zolpidem Tartrate (Zolpidem 5 Mg Tab) 5 mg PO BEDTIME PRN PRN Reason: Insomnia - Exam General: Reports: Alert, Oriented HEENT: Reports: Mucous Membr. Moist/[place] Neck: Reports: Supple Lungs: Reports: Clear to Auscultation, Normal Respiratory Effort Cardiovascular: Reports: Regular Rate, Regular Rhythm GI/Abdominal Exam: Soft, Non-Tender, No Distention Extremities: Normal Inspection, Non-Tender, No Pedal Edema Skin: Reports: Warm, Dry Psy/Mental Status: Reports: Normal Affect, Normal Mood
== END 2020-10-30 15:06 | disposition home or self-care (01) | DRG 542 ==
LOC: DL.OBCHECK 02:33 → DL.OB 03:11 → OBSVTOIN 07:50 → DL.OB 07:50
PROVIDERS: ADMIT Family Medicine; ATTEND Family Medicine
PROC: 10E0XZZ Delivery of Products of Conception, External Approach (ICD-10-PCS; principal; 2020-10-28)
PROC: 10907ZC Drainage of Amniotic Fluid, Therapeutic from Products of Conception, Via Natural or Artificial Opening (ICD-10-PCS; 2020-10-28)
PROC: 0KQM0ZZ Repair Perineum Muscle, Open Approach (ICD-10-PCS; 2020-10-28)
PROC: 0UQC7ZZ Repair Cervix, Via Natural or Artificial Opening (ICD-10-PCS; 2020-10-28)
PROC: 3E0R3BZ Introduction of Anesthetic Agent into Spinal Canal, Percutaneous Approach (ICD-10-PCS; 2020-10-28)
PROC: 00HU33Z Insertion of Infusion Device into Spinal Canal, Percutaneous Approach (ICD-10-PCS; 2020-10-28)
DX: O75.3 Other infection during labor (principal); Z37.0 Single live birth; O72.1 Other immediate postpartum hemorrhage; Z3A.39 39 weeks gestation of pregnancy; Z90.49 Acquired absence of other specified parts of digestive tract; Z20.822 Contact with and (suspected) exposure to COVID-19; O70.0 First degree perineal laceration during delivery
CPT/HCPCS: 36415; 59025; 59409; 85027; 86850; 86900; 86901; 86920; 86922; A9270-GY; J0171; J2210; J2405; J2590; J3010; J7120; U0002

== ENCOUNTER 2022-04-15 09:55 | Emergency (ER) | payer BC ==
[2022-04-15 10:22] VITALS: BP 122/91; PULSE 91
[2022-04-15] MEDS ORDERED: Penicillin G Benzathine/Procaine 600-600 1.2 Millunits/2 ML Syringe IM ONE (10:46)
[2022-04-15] MEDS ORDERED: Ketorolac 30 MG/ML SDV IM ONE (10:46)
== END 2022-04-15 11:00 | disposition home or self-care (01) ==
LOC: DL.ED 09:55
DX: J02.0 Streptococcal pharyngitis (principal); Z79.899 Other long term (current) drug therapy; Z90.49 Acquired absence of other specified parts of digestive tract
CPT/HCPCS: 96372; 99283; J0558; J1885

== ENCOUNTER 2023-10-13 18:33 | Emergency (ER) | payer BC ==
[2023-10-13 19:20] VITALS: BP 128/101; PULSE 100
[2023-10-13] MEDS: Ibuprofen 600 MG Tab PO ONE (19:47)
== END 2023-10-13 19:54 | disposition home or self-care (01) ==
LOC: DL.ED 18:33
DX: S93.492A Sprain of other ligament of left ankle, initial encounter (principal); Z79.899 Other long term (current) drug therapy; W19.XXXA Unspecified fall, initial encounter
CPT/HCPCS: 73610; 73630; 99282; 99283; A9270